=== PATIENT | female | born 1960 | race Caucasian/White ===

== ENCOUNTER 2016-08-24 12:25 | Emergency (ER) | payer BC ==
[2016-08-24 13:58] VITALS: BP 139/88
--- NOTE | 2016-08-24 14:41 | UC ---
General HPI - HPI Summary HPI Summary: 4 days of right foot swelling at the end of the day primarily, with pain diffusely throughout the right foot. 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 Several days ago, she had right calf pain, now resolved. Saw her PMD on Friday; had labs at that time which were normal. These included thyroid and kidney functions. Saw dope sprayer a week ago for left foot pain. She does have a long history of bilateral foot pain. Using tylenol arthritis for pain control, last dose was last pm. - History of Current Complaint Chief Complaint: UCLowerExtremity Stated Complaint: SWOLLEN FEET Time Seen by Provider: 08/24/16 14:33 Hx Obtained From: Patient Onset/Duration: Gradual Onset, Lasting Days - 4 Timing: Intermittent Episodes Lasting: - hours Onset Severity: Moderate Current Severity: Mild Pain Location at: diffuse in the right foot. Pain Radiates to: none Character: aching Associated Signs & Symptoms: Positive: Other - diffuse bilateral leg pain is longstanding. History of structural foot pain being addressed by dope sprayer. - Allergy/Home Medications Allergies/Adverse Reactions: Allergies Allergy/AdvReac Type Severity Reaction Status Date / Time Sulfa Drugs Allergy Severe Headache Verified 08/24/16 13:58 Home Medications: Home Medications Acetaminophen [Tylenol 8 Hour Arthritis] 1,300 mg PO Q8HR PRN 08/24/16 [History Confirmed 08/24/16] Hydrochlorothiazide [Microzide-] 12.5 mg PO DAILY 08/24/16 [History Confirmed ] Rosuvastatin Calcium [Crestor] 5 mg PO DAILY 08/24/16 [History Confirmed ] PMH/Surg Hx/FS Hx/Imm Hx Endocrine History Of: Reports: Thyroid Disease - THYROID CA, TOTAL THYROIDECTOMY Denies: Diabetes Cardiovascular History Of: Reports: Hypertension Denies: Cardiac Disorders Respiratory History Of: Denies: COPD, Asthma GI/ History Of: Denies: Ulcer - Surgical History Surgical History: Yes Surgery Procedure, Year, and Place: TOTAL THYROIDECTOMY, HYSTERECTOMY. RIGHT FOOT SX-TUMOR AND TENDON REPAIR - Social History Occupation: Employed Part-time - nursing [employer] Alcohol Use: None Substance Use Type: None Smoking Status (MU): Never Smoked Tobacco - Immunization History Most Recent Influenza Vaccination: Fall 2014 Review of Systems Constitutional: Fatigue - often tired. Skin: Negative Eyes: Negative ENT: Negative Respiratory: Cough - occasional only Cardiovascular: Negative Gastrointestinal: Negative Genitourinary: Negative Motor: Negative Neurovascular: Negative Musculoskeletal: Arthralgia, Calf Tenderness - right calf tenderness several days ago, now resolved. Neurological: Negative Psychological: Other - long history of poor sleep and insomnia. All Other Systems Reviewed And Are Negative: Yes Physical Exam Triage Information Reviewed: Yes Appearance: Well-Appearing, Obese Vital Signs: Initial Vital Signs Temp 97.5 F 08/24/16 13:47 Pulse 78 08/24/16 13:47 Resp 16 08/24/16 13:47 BP 139/88 08/24/16 13:47 Pulse Ox 100 08/24/16 13:47 Vital Signs Reviewed: Yes Eyes: Positive: Conjunctiva Clear ENT: Positive: Pharynx normal Neck exam: Normal Neck: Positive: No Lymphadenopathy Respiratory: Positive: Lungs clear Cardiovascular: Positive: RRR, No Murmur Abdomen Description: Positive: Nontender Bowel Sounds: Positive: Present Musculoskeletal: Positive: ROM Intact - right ankle and subtalar joints normal. Scar on dorsal mid foot is mildly tender and diffusely thickened., Strength Limited @ - cannot flex right second and third digits of the foot. Soft scar on upper surface., Other: - very mild right foot swelling. No edema. Neurological: Positive: Alert, Muscle Tone Normal Psychological Exam: Normal Skin Exam: Normal Diagnostics - Laboratory Diagnostic Studies Completed/Ordered: xray right foot with mild osteoarthritis. Course/Dx - Course Course Of Treatment: elevate leg, ice, acetaminophen. advised that soft tissue density of the foot is likely related to pain and swelling. Advised will need advanced imaging. - Differential Dx - Multi-Symptom Provider Diagnoses: right foot pain secondary to soft tissue density Discharge - Discharge Plan Condition: Stable Disposition: HOME Patient Education Materials: Arthralgia (ED) Forms: *Work Release Referrals: Pedro Gimenez MD [Primary Care Provider] - Additional Instructions: Keep your foot elevated, and try ice for 15 minutes every few hours. I suggest follow up with your dope sprayer to consider advanced imaging of the soft tissue density in the foot.
--- NOTE | 2016-08-24 15:18 | RAD ---
Indication: RIGHT foot swelling after walking. Previous surgery to remove a benign tumor at the arch of the foot in 2015. Comparison: No relevant prior exams available on the [facility]. Technique: AP and lateral views RIGHT foot. Report: Negative for stress reaction, fracture, or focal osseous lesion. Mild osteophytosis at the first metatarsal phalangeal joint without significant joint space narrowing. Small os peroneum accessory ossicle. Small bone spur at the Achilles tendon insertion. Unremarkable soft tissue contours. IMPRESSION: Mild osteoarthritis at the first metatarsal phalangeal joint and small Achilles tendon insertion bone spur.
== END 2016-08-24 15:51 | disposition home or self-care (01) ==
LOC: UCCORT 12:25
DX: M79.671 Pain in right foot (principal); Z85.850 Personal history of malignant neoplasm of thyroid; I10 Essential (primary) hypertension; E66.9 Obesity, unspecified; E89.0 Postprocedural hypothyroidism; Z90.710 Acquired absence of both cervix and uterus; Z88.2 Allergy status to sulfonamides
CPT/HCPCS: 99211; G0463